=== PATIENT | male | born 1940 | race Caucasian/White ===

== ENCOUNTER → 2020-07-07 10:32 | Outpatient (BNVA) | payer OTHER, SELFPAY | PROVIDERS: PCP Family Medicine; Referring Provider Family Medicine; Visit Provider Urology | DX: R39.89 Other symptoms and signs involving the genitourinary system (principal); C67.9 Malignant neoplasm of bladder, unspecified; D49.4 Neoplasm of unspecified behavior of bladder; N32.9 Bladder disorder, unspecified | CPT/HCPCS: 80048; 81003 ==

== ENCOUNTER → 2020-12-06 15:09 | Outpatient (BNVA) | payer OTHER, SELFPAY | PROVIDERS: PCP Family Medicine; Visit Provider Urology | DX: N32.9 Bladder disorder, unspecified (principal); C67.9 Malignant neoplasm of bladder, unspecified; C67.4 Malignant neoplasm of posterior wall of bladder; H91.90 Unspecified hearing loss, unspecified ear; E78.5 Hyperlipidemia, unspecified | CPT/HCPCS: 81003 ==

== ENCOUNTER → 2020-12-08 12:57 | Outpatient (BNVA) | payer OTHER, SELFPAY | PROVIDERS: PCP Family Medicine; Visit Provider Urology | DX: C67.4 Malignant neoplasm of posterior wall of bladder (principal) | CPT/HCPCS: 87635 ==

== ENCOUNTER 2020-12-15 16:50 | Observation (INO) | payer OTHER, SELFPAY ==
[2020-12-14 11:51] VITALS: BMI 24.8
[2020-12-15] VITALS (19 sets, daily range): BP systolic 129–173; BP diastolic 66–82; PULSE 56–80; RESP 16–22; TEMP 35.7–36.7; O2SAT 92–100
[2020-12-15] MEDS: sodium chloride 0.9% 1,000 ML 30 ML IV (12:58)
--- NOTE | 2020-12-15 14:01 | ANES.PREANE2 ---
Pre-Anesthetic Assessment Pre-Anesthetic Assessment: Height/Weight: Height 1.78 m Weight 78.471 kg Temp Pulse Resp BP Pulse Ox 97.2 F L 73 18 173/75 98 12/15/20 12:41 12/15/20 12:41 12/15/20 12:41 12/15/20 12:41 12/15/20 12:41 Preop Diagnosis: Newly diagnosed bladder cancer Proposed Procedure: Operation Date: 12/15/20 14:00 Proposed Procedures p Transurethral Resection Bladder Tumor 75188 c67.9(Not Applicable) - Froilan Hill MD s Cystoscopy(Not Applicable) - Froilan Hill MD Was Beta Mukesh taken within 24 hours: N/A Was Clonidine taken within 24 hours: N/A Last intake: Intake Last Liquid Date 12/15/20 Last Liquid Time 09:00 Last Solid Date 12/14/20 Last Solid Time 23:00 Social: Social History: Tobacco and No alcohol Exam: Pre-Anes Outpt Exam: alert, oriented x 3 and regular rate & rhythm Airway: Submandibular: WNL Cervical ROM: WNL MP: 2 Dentition: False Pulmonary: Pulmonary: COPD CV/HEM: CV/HEM: HTN Metabolic: Metabolic: Hyperlipidemia Anesthetic Plan: ASA status: 3 Anesthesia: General Risk of > 500 ml blood loss (7ml/kg in children): No Meds/Allergies Current Medications: Current Medications Generic Name Dose Route Start Last Admin Trade Name Freq PRN Reason Stop Dose Admin Sodium Chloride 1,000 mls @ 30 ml s/hr 12/15/20 12:30 12/15/20 12:58 Sodium Chloride 0.9% IV 12/16/20 12:29 30 mls/hr .Q24H HENRY Administration PFSH Anesthesia PFSH: Medical History Bladder cancer Hearing loss Hyperlipidemia Insomnia Lesion of bladder Pneumaturia Surgical History History of ankle surgery Social History Smoking and tobacco status: current every day smoker Alcohol intake: never Marital status: / Current occupational status: retired History of recent travel: No Data Anesthesia Cardiac Studies: No Data to Display
--- NOTE | 2020-12-15 14:25 | P.HPUD_ITS ---
Surgery/Procedure H&P Update DATE OF PROCEDURE: December 15, 2020 DATE H&P PERFORMED: 12/06/20 H&P UPDATE INFORMATION: I have reviewed H&P completed within last 30 days, I have examined patient prior to procedure, No changes to prior documentation and [place] [facility] [place] indicated PREOP DIAGNOSIS: Newly diagnosed bladder cancer PLANNED PROCEDURE: Operation Date: 12/15/20 14:00 Proposed Procedures p Transurethral Resection Bladder Tumor 12051 c67.9(Not Applicable) - Froilan Hill MD s Cystoscopy(Not Applicable) - Froilan Hill MD
--- NOTE | 2020-12-15 14:54 | P.OP_ITS ---
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 Approximately 3 cm in diameter Procedure Done: Cystoscopy, transurethral section of bladder tumor medium Pathology: Bladder tumor specimen Surgeon: Sergio Anesthesia: General Estimated blood loss: <5 cc Complications: None Findings: Papillary tumor, appears well differentiated, located on the right posterior bladder floor. Did not involve the right ureteral orifice Condition: stable Brief History: Mr. Wong is a very pleasant 80-year-old white male who earlier this year was diagnosed with a papillary tumor on his bladder floor. It was recommended that he undergo TURBT. He scheduled that procedure but due to the loss of his he canceled it until just recently. Repeat cystoscopy showed no dramatic change in the tumor from the initial diagnosis until recent cystoscopy for preop. Admitted now for TURBT. Procedure: After routine preoperative evaluation examination and obtaining of informed consent he was taken to the operating suite on 12/15/2020 where general anesthesia was administered without difficulty after appropriate timeout was performed, SCDs confirmed to be functioning, preoperative antibiotics administered, beta-pato protocol confirmed. Prepped and draped in usual sterile fashion in dorsolithotomy position paying careful attention to avoiding pressure points. 21 German cystoscope with 30 degree lens was introduced into the urethral meatus and advanced into the bladder under videoscopy. Bladder was systematically examined both 30 and 70 degree lenses. Findings identified in the clinic were confirmed. No other lesions were seen. Urethra was then calibrated with Deshaun sounds and easily accommodated 30 German. 2% lidocaine jelly was instilled into the urethra. The gyrus bipolar system was utilized with the super loop button probe. 25 German continuous-flow resectoscope sheath with visual obturator in place was advanced into the bladder without difficulty. The resectoscope was assembled and landmarks were ascertained. The super loop was used to resect the tumor down to its base with deep sampling. Muscle was visualized at the base of the resection. Hemostasis was obtained with the button probe. Orifice was not involved in the resection on the right side. All chips were evacuated from the bladder with an [employer] evacuator. Hemostasis was confirmed. Bladder was drained with a 20 German three-way Pitts catheter with a catheter plug placed in the irrigation port. Tolerated the procedure well without complications and was awakened in the operating room and returned to recovery in stable condition. PLANS: 1. Admit to observation status on [facility]. 2. Mitomycin postoperatively
[2020-12-15] MEDS: levofloxacin-dextrose 5 % 500 MG/100 ML PREMIX 100 MG IV (14:55)
[2020-12-15] MEDS: lidocaine 2% Urojet 20 mL (15:18)
--- NOTE | 2020-12-15 16:33 | SUR.PHASEI ---
1610 NO FLOOR BED AVAILABLE FOR PT, MOVED TO OPS RM 10, PT STABLE/COMFORTABLE
--- NOTE | 2020-12-15 16:35 | ANE.PACU2 ---
Inpatient post-anesthesia follow up: Airway intact: Yes Vital signs: Temperature 98 F Pulse Rate 72 Respiratory Rate 18 Blood Pressure 144/82 Pulse Oximetry 93 Oxygen Delivery Me thod Room Air Oxygen Flow Rate 8 Fraction of Inspir ed Oxygen Hydration adequate: Yes Nausea and vomiting: No Pain level: 2 Mental status: Baseline
[2020-12-15] MEDS: docusate sodium 100 mg Capsule PO (18:00)
[2020-12-15] MEDS: D5-NS 0.45% + KCL 20 mEq 20 MEQ/1,000 ML BAG 75 MEQ IV (18:01)
[2020-12-15] MEDS: nicotine 21 mg Patch 1 PATCH TRANSDERMA (20:01)
[2020-12-16 04:00] VITALS: BP 131/66; PULSE 70; RESP 18; TEMP 36.7; O2SAT 98
--- NOTE | 2020-12-16 04:20 | PC.NURSE ---
END OF SHIFT SUMMARY PT HAS REQUESTED QUIETLY THROUGHOUT SHIFT WITH MINIMAL SLEEP THROUGHOUT SHIFT - VSS - PT HAS DENIED PAIN OR COMPLAINTS - CRUZ HAS REMAINED PATENT THROUGHOUT SHIFT WITH YELLOW URINE - NO CLOTS NOTED - WILL CONTINUE TO MONITOR
--- NOTE | 2020-12-16 07:17 | PM.DCS ---
Discharge Providers Date of Admission: 12/15/20 16:50 Date of Discharge: December 16, 2020 Attending Provider at Admission: Froilan Hill MD Attending Provider at Discharge: Froilan Hill MD Primary Care Provider: Deysi Ford MD Diagnoses at Discharge Discharge Diagnosis (1) Bladder cancer: Status: Acute Permanent problem details: Papillary lesion just lateral to the right ureteral orifice. TURBT December 2020. Qualifiers: Bladder location: posterior wall Qualified Code(s): C67.4 - Malignant neoplasm of posterior wall of bladder (2) Hyperlipidemia: Status: Acute Reason for Visit Reason for Visit: cystoscopy Hospital Course Hospital Course He was admitted on the day of the procedure which went well. There were no untoward events postoperatively. Mitomycin was instilled into his bladder on the morning of the postop day #1. It was maintained for about an hour and then drained. Successful voiding trial after catheter removal and discharged in stable condition postop day #1 with plans for further recovery at home. Physical Exam Const: COMMON NORMALS: no acute distress, alert and well nourished GENERAL APPEARANCE: well kempt and well developed ORIENTATION/CONSCIOUSNESS: not confused HENMT: COMMON NORMALS: normocephalic and atraumatic HEAD & SCALP: normocephalic and atraumatic Eye: COMMON NORMALS: conjunctivae normal and no scleral icterus CONJUNCTIVA: Yes conjunctivae normal Neck/C-Spine: COMMON NORMALS: full ROM GENERAL: Yes normal visual inspection Resp: COMMON NORMALS: normal respiratory effort EFFORT & INSPECTION: No labored and No Actively coughing : BLADDER/KIDNEY EXAM: Yes bladder normal to palpation PENIS: normal penis MEATUS: meatus normal SCROTUM: No Scrotal tenderness present Neuro: COMMON NORMALS: no focal motor deficits SENSORIUM/ORIENTATION: Yes alert Psych: COMMON NORMALS: mental status grossly normal and Normal thought process present APPEARANCE: Yes grossly normal and Yes well kempt ATTITUDE: Yes calm and Yes engaged THOUGHT PROCESS: Normal thought process present Skin: COMMON NORMALS: no rashes or lesions noted and no jaundice GENERAL SKIN EXAM: no rashes or lesions noted Urinary Catheter Management^: 3-way Urethral CBI: Cath Placed During This Visit: yes Reason for Continuing Indwelling Catheter: Required Immobilization for Trauma or Surgery or Anesthesia Urinary Catheter Date of Insertion: 12/15/20 Urinary Catheter Time of Insertion: 15:20 Pitts: Cath Placed During This Visit: no Reason for Continuing Indwelling Catheter: Other Discharge Data Data Completed and Pending: Pending at discharge Category Date Time Status Pathology: Surgic al [PTH] Routine Pth 12/15/20 15:45 Ordered Vitals: Last Vital Signs Temp 98.1 F 12/16/20 04:00 Pulse 70 12/16/20 04:00 Resp 18 12/16/20 04:00 BP 131/66 12/16/20 04:00 Pulse Ox 98 12/16/20 04:00 Discharge Plan Discharge Patient Disposition: Home Condition: Stable Prescriptions: Continued pravastatin 40 mg tablet 40 mg PO DAILY RF: 0 lisinopril 10 mg tablet 20 mg PO DAILY RF: 0 Discharge Orders: Discharge Order (Routine); Ordered 12/16/20 Ordered By: Froilan Hill Referrals: Froilan Hill MD [Physician] - 02/16/21 10:15 am (Cystoscopy ) Discharge Diet: Usual diet Discharge Activity: Limit activity as instructed Patient Instructions: Bladder Cancer (GEN), Opioid Safety Activity Restrictions/Additional Instructions: 1. If you have not heard from me in the next week please call for review of pathology report 2. If all is as expected we will plan on looking back in your bladder in about 2 months in my office. 3. Avoid lifting >10 pounds for approximately 3 weeks. 4. Call if you have any concerns or questions. During normal office hours [phone]. If after hours hospital nitroglycerin separator operator can reach me. 5. It is normal to see some blood in your urine and have some increased urgency and frequency after this procedure. If you do see blood in your urine increase her fluid intake and reduce your activity. Discharge Attestations Time Spent in Discharge Care*: less than 30 min Quality Metrics Clinical Quality Measures During this hospital stay, did patient experience: None Coding Level of Care Code Acute Chg FW DC note Exam Comprehensive Diagnoses Bladder cancer C67.4 Bladder location: posterior wall Hyperlipidemia E78.5
--- NOTE | 2020-12-16 07:21 | PM.MISC ---
Miscellaneous Note Purpose of Documentation: Mitomycin intravesical instillation note Note: Utilizing sterile technique 40 mg of mitomycin was instilled into the bladder after confirmation of empty. Drainage port was plugged with a catheter plug. Instructed to hold for 1 hour or less if uncomfortable. Reviewed with nursing staff to drain no later than 1 hour after instilled
[2020-12-16 07:33] VITALS: BP 118/57; PULSE 66; RESP 17; TEMP 36.8; O2SAT 94
[2020-12-16] MEDS: docusate sodium 100 mg Capsule PO (08:13)
[2020-12-16] MEDS: atorvastatin 40 mg Tablet 20 MG PO (08:13)
[2020-12-16] MEDS: lisinopril 10 mg Tablet 20 MG PO (08:14)
[2020-12-16] MEDS: D5-NS 0.45% + KCL 20 mEq 20 MEQ/1,000 ML BAG 75 MEQ IV (08:15)
[2020-12-16 11:31] VITALS: BP 106/54; PULSE 77; RESP 17; TEMP 36.7; O2SAT 93
[2020-12-16 13:42] VITALS: BP 106/54; PULSE 77; RESP 17; TEMP 36.7; O2SAT 93
--- NOTE | 2020-12-19 18:48 | PC.RESP ---
SMOKING CESSATION INFORMATION SENT TO PATIENT.
== END 2020-12-16 14:01 | disposition home or self-care (01) ==
LOC: MEDSURG 16:50
PROVIDERS: Admitting Provider Urology; PCP Family Medicine; Visit Provider Urology
PROC: 0TBB8ZZ Excision of Bladder, Via Natural or Artificial Opening Endoscopic (ICD-10-PCS; CPT 52235; principal; 2020-12-15 13:50)
PROC: 0TJB8ZZ Inspection of Bladder, Via Natural or Artificial Opening Endoscopic (ICD-10-PCS; CPT 52000; 2020-12-15 13:50)
DX: C67.4 Malignant neoplasm of posterior wall of bladder (principal); E78.5 Hyperlipidemia, unspecified; J44.9 Chronic obstructive pulmonary disease, unspecified; I10 Essential (primary) hypertension; F17.210 Nicotine dependence, cigarettes, uncomplicated
CPT/HCPCS: 52235; 51720; 88305; G0378; J1100; J1956; J2250; J2405; J2704; J2710; J3010; J3490; J7030; J9280

== ENCOUNTER → 2021-02-17 09:39 | Outpatient (BNVA) | payer OTHER, SELFPAY | PROVIDERS: PCP Family Medicine; Visit Provider Urology | DX: C67.4 Malignant neoplasm of posterior wall of bladder (principal) | CPT/HCPCS: 81003 ==

== ENCOUNTER 2021-03-29 12:04 | Outpatient (CLI) | payer OTHER, SELFPAY ==
--- NOTE | 2021-03-29 18:57 | ONC CON_ITS ---
Dr. Temple New Patient Note Patient: Gio Wong Unit #: [id number]: 1940 Dicatated By: Tom Temple M.D.Date of Visit: Mar 29, 2021 Onc MED New Patient/Consult Referring Physician: Dr. Froilan Hill M.D. Chief Complaint: Liver metastases. History of Present Illness: This is a 80-year-old man with CT evidence of multiple liver metastases. This patient has history of superficial bladder cancer followed by Dr. Hill. It had first been discovered in July 2020. He eventually underwent cystoscopy with TURBT on 12/15/2020. He was noted to have papillary tumor located on the right posterior bladder floor. It was not involving the ureteral orifice. Pathology showed low-grade papillary urothelial carcinoma. It was noninvasive with clear cell differentiation. He was given intravesical mitomycin on postop day 1. His surveillance cystoscopy on 02/17/2021 showed a couple of areas of possible early recurrence, one just lateral to the right ureteral orifice and one small area on the left posterior floor cephalad to the left ureteral orifice. These were not clearly recurrences, and a 3-month interval follow-up cystoscopy was recommended. He had a follow-up visit with Deysi Ford on 03/06/2021. At that point he reported a 10-day history of fatigue and just feeling generally bad. His bilirubin and liver enzymes were noted to be elevated. Then had further evaluation with CT of the abdomen on 03/20/2021. It was given without IV contrast due to borderline renal function, creatinine 1.45 mg/dL. The CT showed multiple low-density space-occupying lesions which were suspicious for metastases. The pancreas was noted to be small and free of appreciable mass. There was no renal mass noted and there was no hydronephrosis. There was no appreciable retroperitoneal lymphadenopathy and there was no abdominal ascites noted. With those findings, he was recommended to have contrast-enhanced CT scans of the chest, abdomen, and pelvis, and those are scheduled to be done next week. He is seen now for further management. He says he just feels bad all over. He has zero energy. He complains that he can eat and cannot sleep. He has very limited activity. His ECOG score is 2. He has had weight loss in the range of 10 to 15 pounds. He has not had fever. He occasionally has sweating at night. He says his breathing is okay. He does not complain of cough. He currently is not having any chest pain. He does have nausea and he says he has dry heaves at least once or twice a day. He has some constipation. His bowels are typically moving 2 or 3 times a day. He does have some discomfort in the mid to lower abdomen. He has not been aware of any blood in the stool. He has some hesitancy with urination a complains that he dribbles a lot. He has no significant joint or bone pain. He does not complain of headache or dizziness, and he has no focal neurologic symptoms. Past Medical History: His medical history includes chronic kidney disease, hyperlipidemia, hypertension, and superficial bladder cancer. Past Surgical History: He underwent cystoscopy with TURBT on 12/15/2020. He has had no other surgeries. Medications: Pravastatin Sodium 1 Tablet (of 40 mg) Oral daily, predniSONE 1 Tablet (of 10 mg) Oral b.i.d. Allergies: traZODone HCl and Tuberculin PPD. Social History: Mr. Wong is . He is a daily smoker. He is a former drinker. He has a history of smoking 1 pack of cigarettes daily for 60 years. He had heavy alcohol use while he is in the [employer], but he quit drinking more than 20 years ago. Family History: His father had crippling arthritis. He of a brain aneurysm at age 53. Mother with natural causes at age 96. He had 2 sisters, both , one of heart disease and the other of natural causes . Review Of Symptoms: Constitutional - He has zero energy. His activity is very limited. Appetite is poor. He has had weight loss in the range of 10 to 15 pounds. He has not had fever. He has had occasional night sweating. ECOG score is 2, Eyes - No change in vision, ENMT - He has hearing loss. No tinnitus. No sinus congestion/drainage. No mouth sores. No sore throat or difficulty swallowing, Hematologic/Lymphatic - He bleeds easily, Respiratory - No shortness of breath. No cough. No pleuritic pain or hemoptysis, Cardiovascular - No angina pain. No palpitations, Gastrointestinal - He has been having nausea and he has dry heaves about twice a day. No acid reflux. He has constipation. Bowels are moving a lot every 2 to 3 days. He is having some mild pain in the mid to lower abdomen. He has not been aware of any blood in the stool or black stools, Genitourinary (M) - He has some hesitancy and he is having a lot of dribbling, Musculoskeletal - No joint or bone pain, Integumentary - No skin rash or other skin changes, Neurologic - No headache or dizziness. No numbness or tingling. No other focal neurologic symptoms, Psychiatric - No anxiety or depression. He is having difficulty sleeping. Vital Signs: Performed on Mar 29, 2021 13:15: 10, 0, 23.27, 1.91 sq.m, 70 in, 98 %, 68 /min, 18 /min, 148/80 mm(hg) (HIGH), 95.9 F (LOW), and 162.2 lbs (HIGH). Physical Examination: Constitutional - Patient appears generally weak, Eyes - Sclerae nonicteric. Conjunctivae clear, ENMT - No lesions noted in the oral cavity, Hematologic/Lymphatic - No cervical, clavicular, or axillary adenopathy, Respiratory - Lungs are clear with some decrease in air movement bilaterally, Cardiovascular - Heart rhythm is regular. There is no murmur, gallop, or rub noted, Abdomen - Soft. There is mild tenderness in the mid abdominal area. Liver appears to extend just below the costal margin. Spleen is not palpable. There is no abdominal mass or ascites noted and there is no inguinal adenopathy, Extremities - No edema. Pedal pulses are palpable bilaterally, Integumentary - No rashes. No suspicious skin lesions noted, Neurologic - No focal neurologic deficits noted. Lab/Imaging: Laboratory studies from 03/21/2021 included CBC showing hemoglobin of 15.4 g, white blood cell count 10,800, and platelet count 282,000. The chemistry profile showed borderline renal function with creatinine 1.45 mg/dL. Bilirubin was elevated at 1.8 mg/dL with SGPT 242/40 U/L and with SGOT 431/34 U/L. Problem List: 1. Patient with CT evidence of multiple metastatic lesions in the liver. The primary source is undetermined. However, this is not likely to be metastatic bladder cancer. 2. He has a history of noninvasive, low-grade, papillary urothelial carcinoma for which he underwent TURBT on 12/15/2020 followed by intravesical mitomycin-C on 12/16/2020. 3. Hypertension, currently not requiring medication. 4. Hyperlipidemia. 5. Chronic kidney disease. Problems Addressed with this Encounter and Plan: 1. Patient with CT evidence of multiple metastatic lesions in the liver. The primary source is undetermined. He had undergone TURBT for bladder cancer in December 2020. However, with a low-grade noninvasive tumor, this is very unlikely to be metastatic bladder cancer. The CT findings were reviewed with the patient and we discussed the clinical complications. He has a malignant process involving his liver which appears to be metastatic. He is advised that this will not be a curable malignancy. At this point the likelihood of benefit with treatment cannot be predicted, but he is advised that the prognosis is generally not very good. Treatment options may include standard cytotoxic chemotherapy, targeted therapy, and/or immunotherapy, depending on complete pathologic analysis of a biopsy specimen. At this point we will await results of the contrast-enhanced CT scans, but in the meantime, I am going to proceed with tentative arrangements for CT directed liver biopsy. I also will have him try a low-dose of prednisone for the nausea/anorexia. 2. He has a history of noninvasive, low-grade, papillary urothelial carcinoma for which he underwent TURBT on 12/15/2020 followed by intravesical mitomycin-C on 12/16/2020. He has being followed by Dr. Hill. Signed By: Tom Temple M.D. <<Signature on File>>
== END 2021-03-29 12:05 | disposition home or self-care (01) ==
LOC: ONCMED 12:06
PROVIDERS: PCP Family Medicine; Visit Provider Internal Medicine Medical Oncology
DX: C80.1 Malignant (primary) neoplasm, unspecified (principal); C78.7 Secondary malignant neoplasm of liver and intrahepatic bile duct; I10 Essential (primary) hypertension; E78.5 Hyperlipidemia, unspecified; N18.9 Chronic kidney disease, unspecified; Z79.899 Other long term (current) drug therapy; Z85.51 Personal history of malignant neoplasm of bladder
CPT/HCPCS: 99205

== ENCOUNTER 2021-04-03 13:32 | Outpatient (CLI) | payer OTHER, SELFPAY ==
--- NOTE | 2021-04-03 13:43 | CT_ITS ---
WS: [id number] CT CHEST, ABDOMEN AND PELVIS WITH CONTRAST. HISTORY: LIVER METS/SMOKER/ HISTORY OF BLADDER CANCER TECHNIQUE: Contiguous 5 mm axial imaging performed through the chest, abdomen and pelvis with IV cont rast, oral contrast has been provided. Coronal and sagittal reformats chest. Coronal and sagittal ref ormats through the abdomen and pelvis. All CT scans at [facility] use at least one of these d ose optimization techniques: automated exposure control; mA and/or kV adjustment per patient size (in cludes targeted exams where dose is matched to clinical indication); or iterative reconstruction. CONTRAST: Visipaque 320; 95 mL IV. DLP: 2399.4 mGycm COMPARISON: None available. Chest CT: Spiculated nodule in the central RIGHT upper lobe measures 15 x 13 x 14 mm. No additional m asses or nodules are identified. There is a background of mild emphysema. Very mild dependent changes at the lung bases bilaterally. Mild atherosclerosis aorta. Normal size pulmonary artery. Coronary ar allan atherosclerosis is mild to moderate. Heart size is normal. No adenopathy in the mediastinum. Sma ll hiatal hernia. Abdomen CT: Abnormal appearance of the liver. Liver is markedly enlarged extending over a length of 2 3 cm. There are innumerable low-attenuation nodules diffusely throughout the liver. Essentially, no n ormal-appearing liver parenchyma. There are a few additional nodules which are of low attenuation and larger size scattered throughout both lobes of the liver. The largest low-attenuation nodules in the lateral RIGHT lobe of the liver measuring 27 x 32 mm. No bile duct dilatation. Portal vein remains p atent. Gallbladder is mildly contracted. There may be tiny stones within the gallbladder lumen towards the n carlos. No adjacent inflammation. Normal pancreas and spleen. Normal adrenal glands. Normal size RIGHT k idney. Hypoechoic nodule in the inferior pole. No obstruction. Normal LEFT kidney. Extensive atherosc lerosis aorta with no aneurysm. There is no ascites or adenopathy. No GI tract obstruction. No colonic lesions or obstruction. Pelvic CT: Minimally distended urinary bladder. No mass or nodules. There is a tiny amount of ascites within the pelvis which is abnormal in a male patient. No osteoblastic or osteolytic bone disease. CT/CT chest abd pel w con* IMPRESSION: 1. RIGHT upper lobe spiculated nodule measures 15 x 13 x 14 mm. Suspect primar y lung malignancy. Metastatic site not completely excluded. No adenopathy or ad ditional suspicious pulmonary nodules. 2. Markedly abnormal liver. Severe hepatomegaly with innumerable low-attenuati on nodules throughout the liver. Some of these nodules are larger in size and a re more consistent with metastatic disease. Suspect metastatic disease of uncer tain etiology. Not a typical appearance for hepatic metastasis. Consider metast atic disease on a background of regenerating cirrhotic nodules, lymphoma and ca rcinoid. Ultrasound may be helpful to further evaluate the liver and evaluate a scites for possible biopsy. 3. Mild atherosclerosis aorta. 4. No renal mass or obstruction. 5. Visualized urinary bladder is negative. 6. Mild constipation distally. 7. No adenopathy. 8. Small amount of ascites in the pelvis is abnormal in a male patient.
[2021-04-03] MEDS: iohexol 300 mg/mL 50 mL Btl PO (13:44)
[2021-04-03] MEDS: iodixanol 320 mg/mL 100mL Btl IV (14:06)
== END 2021-04-03 13:33 | disposition home or self-care (01) ==
PROVIDERS: PCP Family Medicine; Visit Provider Family Medicine
DX: C78.7 Secondary malignant neoplasm of liver and intrahepatic bile duct (principal); F17.210 Nicotine dependence, cigarettes, uncomplicated; Z85.51 Personal history of malignant neoplasm of bladder; R18.8 Other ascites; K59.00 Constipation, unspecified; I70.0 Atherosclerosis of aorta; R16.0 Hepatomegaly, not elsewhere classified; R91.1 Solitary pulmonary nodule
CPT/HCPCS: 71260; 74177; Q9967

== ENCOUNTER 2021-04-13 06:25 | Day surgery (SDC) | payer OTHER, SELFPAY ==
[2021-04-10 13:52] VITALS: BMI 22.2
[2021-04-13] VITALS (11 sets, daily range): BP systolic 132–158; BP diastolic 72–82; PULSE 61–87; RESP 16–20; TEMP 36.1–36.2; O2SAT 96–99
--- NOTE | 2021-04-13 06:32 | US_ITS ---
WS: [id number] ULTRASOUND GUIDED BIOPSY LIVER. HISTORY: Metastatic disease to the liver. Unknown etiology. Procedure, risks, and complications are explained to the patient. Consent was obtained. Skin is clean sed with ChloraPrep and anesthetized with 1% buffered lidocaine. Prior imaging studies are reviewed. Biopsy will be performed under conscious sedation. Extensive lesions noted throughout the liver. Biopsy will be performed over the midline of the LEFT l obe. Multiple core biopsies were performed under sterile conditions with an 18-gauge needle. No compl ications were encountered. Specimen is placed in formalin. Patient will be observed 2 hours postproce dure for bleeding. US/US biopsy liver [id number] IMPRESSION: Uncomplicated ultrasound-guided liver biopsy of metastatic lesions. Pathology r esults pending.
[2021-04-13] MEDS: sodium chloride 0.9% 1,000 ML 30 ML IV (07:03)
[2021-04-13 07:28] LABS: INR 1.01 (0.8-1.2)
[2021-04-13] MEDS: midazolam 1 mg/mL INJ 2 mL IVP (08:08)
[2021-04-13] MEDS: fentaNYL 50 mcg/mL INJ 2mL 25 MCG IVP (08:10)
--- NOTE | 2021-04-13 08:12 | SUR.OPER ---
10ml of lidocaine use in right abdomen for pre-procedure by Dr. Mast.
--- NOTE | 2021-04-13 10:05 | PC.NURSE ---
Dressing to RUQ remains D/I. Abd soft and non-distended. Pt denies pain. VSS. Tolerating water without difficulty. Discharge instructions given. Pt off floor via wheelchair to be taken home by friend.
[2021-04-21 12:45] LABS: PD-L1 (Clone 22C3) by IHC BBPL See Report
== END 2021-04-13 10:13 | disposition home or self-care (01) ==
PROVIDERS: Radiology Diagnostic Radiology; PCP Family Medicine; Visit Provider Internal Medicine Medical Oncology
DX: C78.7 Secondary malignant neoplasm of liver and intrahepatic bile duct (principal)
CPT/HCPCS: 36415; 47000; 76942; 85610; 88307; 88342; 96361; 96374; 96375; J2250; J3010; J7030

== ENCOUNTER 2021-04-19 09:45 | Outpatient (CLI) | payer OTHER, SELFPAY ==
--- NOTE | 2021-04-22 13:18 | ONC FU_ITS ---
Dr. Temple Patient Follow-Up Note Patient: Gio Wong Unit #: [id number]: [id number] Dicatated By: Tom Temple M.D.Date of Visit:Apr 19, 2021 Onc Med Follow-up/Prog Note Chief Complaint: Liver metastases. History of Present Illness: This is a 80-year-old man with CT evidence of multiple liver metastases. 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 It had first been discovered in July 2020. He eventually underwent cystoscopy with TURBT on 12/15/2020. He was noted to have papillary tumor located on the right posterior bladder floor. It was not involving the ureteral orifice. Pathology showed low-grade papillary urothelial carcinoma. It was noninvasive with clear cell differentiation. He was given intravesical mitomycin on postop day 1. His surveillance cystoscopy on 02/17/2021 showed a couple of areas of possible early recurrence, one just lateral to the right ureteral orifice and one small area on the left posterior floor cephalad to the left ureteral orifice. These were not clearly recurrences, and a 3-month interval follow-up cystoscopy was recommended. He had a follow-up visit with Deysi Ford on 03/06/2021. At that point he reported a 10-day history of fatigue and just feeling generally bad. His bilirubin and liver enzymes were noted to be elevated. Then had further evaluation with CT of the abdomen on 03/20/2021. It was given without IV contrast due to borderline renal function, creatinine 1.45 mg/dL. The CT showed multiple low-density space-occupying lesions which were suspicious for metastases. The pancreas was noted to be small and free of appreciable mass. There was no renal mass noted and there was no hydronephrosis. There was no appreciable retroperitoneal lymphadenopathy and there was no abdominal ascites noted. I had seen him initially on 03/29/2021. He had further evaluation with CT scans of the chest, abdomen, and pelvis on 04/03/2021. The chest showed a right upper lobe spiculated nodule measuring 15 x 13 x 14 mm, suspicious for primary lung malignancy. Metastatic site, though, was not completely excluded. The liver appeared markedly abnormal with severe hepatomegaly and innumerable low-attenuation nodules which was suspected to reflect metastatic disease, though the appearance was not typical for that. There was small amount of ascites in the pelvis. There was no evidence of a primary malignancy in the abdomen/pelvis. He underwent ultrasound-guided liver biopsy on 04/13/2021. The preliminary indication is that it is positive for malignancy, but additional studies and the final diagnosis are still pending. He is seen for a follow-up visit. He has been feeling worn out and generally weak. He is mainly just going to and from the bathroom. ECOG score is 3. His appetite initially had improved with prednisone, but it is no longer helping. He has not had fever. He has been having night sweating at least twice a week. He does not complain of cough, and he has not been having shortness of breath or chest pain. He has been having occasional dry heaves. He has pain in the mid abdominal area. Bowel and bladder function remain adequate. He has no significant joint or bone pain. He does not complain of headache or dizziness, and he has no focal neurologic symptoms. Medications: Pravastatin Sodium 1 Tablet (of 40 mg) Oral daily, predniSONE 1 Tablet (of 10 mg) Oral b.i.d. Allergies: traZODone HCl and Tuberculin PPD. Vital Signs: Performed on Apr 19, 2021 14:55 Height - 70.00 in Weight - 154.2 lbs (LOW) BSA - 1.87 sq.m BMI - 22.13 Temperature - 96.6 F (LOW) Pulse - 93 /min Respiration - 18 /min BP - 157/86 mm(hg) (HIGH) O2 Sat - 99 % Pain - 2 Fatigue - 9 Physical Examination: Constitutional - He appears generally weak, Eyes - Sclerae nonicteric. Conjunctivae clear, ENMT - No lesions noted in the oral cavity, Hematologic/Lymphatic - No cervical, clavicular, or axillary adenopathy, Respiratory - Lungs are clear with some decrease in air movement bilaterally, Cardiovascular - Heart rhythm is regular. There is no murmur, gallop, or rub noted, Abdomen - Soft. Liver is enlarged and extends into the left upper quadrant. Spleen is not palpable. There is no abdominal mass or ascites noted and there is no inguinal adenopathy, Extremities - No edema, Neurologic - No focal neurologic deficits noted. Problem List: 1. Patient with CT evidence of multiple metastatic lesions in the liver. The primary source is undetermined. However, this is not likely to be metastatic bladder cancer. 2. He has a history of noninvasive, low-grade, papillary urothelial carcinoma for which he underwent TURBT on 12/15/2020 followed by intravesical mitomycin-C on 12/16/2020. 3. Hypertension, currently not requiring medication. 4. Hyperlipidemia. 5. Chronic kidney disease. Problems Addressed with this Encounter and Plan: 1. Patient with CT evidence of multiple metastatic lesions in the liver. Ultrasound-guided needle biopsy of the liver on 04/13/2021 is positive for malignancy, but the final pathology is not yet complete. A primary source has not been undetermined. He had undergone TURBT for bladder cancer in December 2020. However, with a low-grade noninvasive tumor, I felt that it was not likely to be metastatic bladder cancer. His staging CT scans of the chest, abdomen, and pelvis did show a small pulmonary nodule in the right upper lobe, appearance of which was suspicious for a primary lung malignancy, though a metastatic was not excluded. At least for now he will continue symptomatic management pending final pathology results, and I will go ahead and request for next generation sequencing to be done. However, given the extent of involvement in the liver, the overall prognosis appears poor. As he is no longer getting significant benefit with the prednisone, I will have him reduce the dosage to 10 mg daily. I will have him start dronabinol 2.5 mg twice daily for nausea/anorexia, subject to verification of insurance coverage. 2. He has a history of noninvasive, low-grade, papillary urothelial carcinoma for which he underwent TURBT on 12/15/2020 followed by intravesical mitomycin-C on 12/16/2020. He is being followed by Dr. Hill. Signed By: Tom Temple M.D. <<Signature on File>>
== END 2021-04-19 09:46 | disposition home or self-care (01) ==
LOC: ONCMED 09:46
PROVIDERS: PCP Family Medicine; Visit Provider Internal Medicine Medical Oncology
DX: C67.2 Malignant neoplasm of lateral wall of bladder (principal); C78.7 Secondary malignant neoplasm of liver and intrahepatic bile duct; I10 Essential (primary) hypertension; E78.5 Hyperlipidemia, unspecified; N18.9 Chronic kidney disease, unspecified; Z79.52 Long term (current) use of systemic steroids; Z79.899 Other long term (current) drug therapy
CPT/HCPCS: 36415; 99214